=== PATIENT | female | born 1945 | race Caucasian/White ===

== ENCOUNTER → 2016-05-17 | Outpatient (CLI) | payer BC ==
[~2016-05-17] MED LIST: ASPI81TA28 PO; CHLOTAB PO; ERGO1CAP35 PO; EZET10TA63 PO; MONT1TAB3 PO; OXYB10TA13 PO; PRLSR20 PO; SIMV20TA2 PO
[2016-05-17 09:58] LABS: ESTIMATED AVERAGE GLUCOSE 128 mg/dl; HA1C FLAG Normal (Normal)
[2016-05-17 10:22] LABS: ALT/SGPT 31 U/L (12-78); BLOOD UREA NITROGEN 15 mg/dl (7-18); CALCIUM 9.5 mg/dl (8.5-10.1); CARBON DIOXIDE 31 mmol/L (21-32); CHLORIDE 106 mmol/L (98-107); CHOLESTEROL 283 mg/dl (0-200); GLUCOSE 105 mg/dl (70-99); POTASSIUM 4.2 mmol/L (3.5-5.1); SODIUM 141 mmol/L (136-145)
[2016-05-17 10:26] LABS: ALB/GLOB RATIO 1.1 (0.9-2); ALKALINE PHOSPHATASE 94 U/L (45-117); AST/SGOT 16 U/L (15-37); CHOLESTEROL/HDL RATIO 5.5; HDL CHOLESTEROL 51 mg/dl; LDL CHOLESTEROL CALCULATED 190 mg/dl; TRIGLYCERIDES 212 mg/dl (0-150); VERY LOW DENSITY LIPOPROT CALC 42 mg/dl
--- NOTE | 2016-05-21 12:52 | CODING QUERY MEDICAL NECESSITY ---
CQSUPPORTING DIAGNOSIS NEEDED A supporting diagnosis is required for the test/procedure performed on this patient in order for us to be reimbursed by the patient's insurance. Please provide a supporting diagnosis for the following test/procedure listed below next to the test name along with your signature. *If there is no additional diagnosis for this patient that would support the following test/procedure please document that below next to the test/procedure. Test(s)/Procedure(s) that require a supporting diagnosis: DOS 05/17/16 GLYCATED HEMOGLOBIN TEST Provider Signature: Date: Thank you Debra Fournier Health Information Management Once completed, please kindly fax back to [phone] For questions please call [phone]
== END | disposition home or self-care (01) ==
LOC: C.LAB1850 08:21
PROVIDERS: ATTEND Family Medicine
DX: E78.00 Pure hypercholesterolemia, unspecified (principal); R73.03 Prediabetes; Z23 Encounter for immunization

== ENCOUNTER → 2016-06-09 | Outpatient (CLI) | payer BC ==
--- NOTE | 2016-06-09 15:49 | MAMMOGRAPHY REPORT ---
BILATERAL DIGITAL SCREENING MAMMOGRAM WITH CAD: 06/09/2016 CLINICAL HISTORY: Routine screening. TECHNIQUE: Current study was also evaluated with a Computer Aided Detection (CAD) system. Bilatera l CC and MLO views were obtained. COMPARISON: Comparison is made to exams dated: 06/06/2015 mammogram, 06/04/2014 mammogram, 12/20/2012 mammogram, 12/04/2012 mammogram - [facility], 10/26/2006, and 07/18/2002 mammogram - [facility]. BREAST COMPOSITION: The tissue of both breasts is heterogeneously dense, which may obscure small ma sses. FINDINGS: No suspicious masses, calcifications, or areas of architectural distortion are noted in e ither breast. There has been no significant interval change compared to prior exams. Scattered bila teral benign calcifications are not significantly changed. A mass with an associated biopsy marker clip in the left upper inner quadrant is stable. IMPRESSION: ACR BI-RADS CATEGORY 2: BENIGN There is no mammographic evidence of malignancy. A 1 year screening mammogram is recommended. The p atient will receive written notification of the results. Approximately 10% of breast cancers are not detected with mammography. A negative mammographic repor t should not delay biopsy if a clinically suggestive mass is present. Landy Garcia M.D. ah/:06/09/2016 15:17:21 Billet Inspector: Wili MARR(R)(M), [facility] letter sent: Normal 1/2 BI-RADS Code: ACR BI-RADS Category 2: Benign
== END | disposition home or self-care (01) ==
LOC: C.MAMM 09:53
PROVIDERS: ATTEND Family Medicine
DX: Z12.31 Encounter for screening mammogram for malignant neoplasm of breast (principal)

== ENCOUNTER → 2016-11-22 | Outpatient (CLI) | payer BC ==
[2016-11-22 13:12] LABS: BLOOD UREA NITROGEN 21 mg/dl (7-18); BUN/CREATININE RATIO 19.7 (10-20); CALCIUM 9.1 mg/dl (8.5-10.1); CARBON DIOXIDE 27 mmol/L (21-32); CHLORIDE 106 mmol/L (98-107); CREATININE 1.09 mg/dl (0.60-1.20); GLUCOSE 93 mg/dl (70-99); POTASSIUM 4.5 mmol/L (3.5-5.1); SODIUM 140 mmol/L (136-145); TRIGLYCERIDES 271 mg/dl (0-150); VERY LOW DENSITY LIPOPROT CALC 54 mg/dl
[2016-11-22 13:15] LABS: CHOLESTEROL 278 mg/dl (0-200); CHOLESTEROL/HDL RATIO 5.8; HDL CHOLESTEROL 48 mg/dl; LDL CHOLESTEROL CALCULATED 176 mg/dl
[2016-11-22 13:34] LABS: ESTIMATED AVERAGE GLUCOSE 123 mg/dl; HA1C FLAG Normal (Normal)
== END | disposition home or self-care (01) ==
LOC: C.LAB1850 11:40
PROVIDERS: ATTEND Family Medicine
DX: E78.00 Pure hypercholesterolemia, unspecified (principal); R73.03 Prediabetes

== ENCOUNTER → 2016-12-31 | Outpatient (CLI) | payer BC | END | disposition home or self-care (01) | LOC: C.MAMM 08:58 | PROVIDERS: ATTEND Family Medicine | DX: M81.0 Age-related osteoporosis without current pathological fracture (principal); M85.851 Other specified disorders of bone density and structure, right thigh; M85.852 Other specified disorders of bone density and structure, left thigh ==

== ENCOUNTER → 2017-02-17 | Outpatient (CLI) | payer BC ==
[2017-02-17 17:30] LABS: CALCIUM 9.1 mg/dl (8.5-10.1)
== END | disposition home or self-care (01) ==
LOC: C.LABBC 13:43
PROVIDERS: ATTEND Internal Medicine Rheumatology
DX: K21.9 Gastro-esophageal reflux disease without esophagitis (principal); M25.562 Pain in left knee

== ENCOUNTER → 2017-06-10 | Outpatient (CLI) | payer BC ==
--- NOTE | 2017-06-13 14:33 | MAMMOGRAPHY REPORT ---
BILATERAL DIGITAL SCREENING MAMMOGRAM TOMOSYNTHESIS WITH CAD: 06/10/2017 CLINICAL HISTORY: Routine screening. Patient has no complaints. TECHNIQUE: Breast tomosynthesis in addition to standard 2D mammography was performed. Current study was also evaluated with a Computer Aided Detection (CAD) system. COMPARISON: Comparison is made to exams dated: 06/09/2016 mammogram, 06/06/2015 mammogram, 06/04/2014 ma mmogram, 12/20/2012 mammogram, 12/04/2012 mammogram - [facility], and 10/26/2006. BREAST COMPOSITION: The tissue of both breasts is heterogeneously dense, which may obscure small mas ses. FINDINGS: No suspicious masses, calcifications, or areas of architectural distortion are noted in ei ther breast. There has been no significant interval change compared to prior exams. Scattered bilate ral benign appearing calcifications are not significantly changed. A mass with an associated biopsy marker clip in the left upper inner quadrant is stable. IMPRESSION: ACR BI-RADS CATEGORY 2: BENIGN There is no mammographic evidence of malignancy. A 1 year screening mammogram is recommended. The pa tient will receive written notification of the results. Approximately 10% of breast cancers are not detected with mammography. A negative mammographic report should not delay biopsy if a clinically suggestive mass is present. Landy Garcia M.D. ah/:06/10/2017 15:00:59 Manager Rental: Rosalee MARR(R)(M)(BD), [facility] letter sent: Normal 1/2 BI-RADS Code: ACR BI-RADS Category 2: Benign
== END | disposition home or self-care (01) ==
LOC: C.MAMM 09:43
PROVIDERS: ATTEND Family Medicine
DX: Z12.31 Encounter for screening mammogram for malignant neoplasm of breast (principal)

== ENCOUNTER 2017-06-26 08:55 | Observation (INO) | payer BC ==
[~2017-06-26] VITALS: Ht 162.6 cm; Wt 67.0 kg
[2017-06-26] MEDS: SODIUM CHLORIDE 0.9% 1000ML 1,000 ML IV ONE ×2 (09:10→10:23)
[2017-06-26] MEDS ORDERED: SODIUM CHLORIDE 0.9% 1000ML 1,000 ML IV STA (09:10)
[2017-06-26 09:28] LABS: BASO % 0.1 %; BASO ABS # 0.01 K/uL (0-0.2); HEMATOCRIT 38.3 % (37-47); HEMOGLOBIN 13.3 g/dL (12.0-16.0); IG# 0.02 K/uL (0.00-0.02); LYMPH % 6.1 %; LYMPH ABS # 0.62 K/uL (1.2-3.4); MEAN CELL VOLUME 86.3 fL (80-100); MEAN CORPUSCULAR HGB CONC 34.7 g/dl (32-36); MEAN PLATELET VOLUME 8.4 fL (7.4-10.4); MONO % 6.5 %; MONO ABS # 0.66 K/uL (0.11-0.59); NEUT % 87.1 %; NEUT ABS # 8.79 K/uL (1.4-6.5); PLATELET COUNT 163 K/uL (130-400); RED CELL DISTRIBUTION WIDTH CV 12.4 % (11.5-14.5); RED CELL DISTRIBUTION WIDTH SD 39.4 fL (36.4-46.3)
--- NOTE | 2017-06-26 09:32 | EMERGENCY ROOM VISIT NOTE ---
History Report prepared by Clive: Brent Gan Under the Supervision of: Dr. Rashawn Oropeza M.D. First contact with patient: 09:02 Chief Complaint: RECTAL BLEEDING Stated Complaint: BLOOD IN FECES History of Present Illness The patient is a 71 year old female who presents to the Emergency Room with complaints of intermittent rectal bleeding that began yesterday after eating dinner. Patient is present with family. Patient states that after she finished eating dinner she had diarrhea and vomiting. Patient adds that she was constipated prior to the diarrhea. Patient states that the diarrhea had blood in it. Patient adds that she had discomfort in her abdomen and lower back last night when she was sleeping. Patient states that she got up from sleep 6 hours ago and went to the bathroom and had blood with no stools. She states that she had multiple similar occurrences throughout the rest of the night. She states that typically a "teaspoon to a table spoon" of blood comes out. Patient denies taking any blood thinners. Patient states that she gets a colonoscopy every 5 years. Patient states that she has a family history of colon cancer. Patient denies fevers, lightheadedness, dizziness, nausea, shortness of breath, chest pain, leg pain, or leg swelling. Patient denies a history of abdominal surgeries. Patient denies any other major medical problems. Patient denies any recent travel. Patient states that she sees Dr. Cooper at [facility]. Source of History: patient, family Onset: Yesterday Position: other (Rectal) Timing: intermittent Modifying Factors (Relieving): other (None) Associated Symptoms: + abdominal pain (Discomfort), + back pain (Lower back discomfort), + hematochezia, + diarrhea, No fevers, No chest pain, No SOB, No nausea Note: Patient denies lightheadedness, dizziness, leg pain, and leg swelling. Review of Systems See HPI for pertinent positives & negatives. A total of 10 systems reviewed and were otherwise negative. Past Medical & Surgical Medical Problems: (1) Hematochezia Surgical Problems: (1) H/O colonoscopy Old medical records were reviewed. Nurse's notes were reviewed and I agree with. No surgical history. No history of GI bleed. No anticoagulation use Family History FHx: colon cancer Social History Smoking Status: Never Smoker Drug Use: none Occupation Status: retired Current/Historical Medications Scheduled Bupropion (Wellbutrin-Xl), 300 MG PO DAILY Ergocalciferol (Vitamin D 25646 Unit), 50,000 UNIT PO WK Magnesium Oxide (Mag-Ox), 400 MG PO DAILY Mirabegron (Myrbetriq Er), 50 MG PO DAILY Misc Natural Products (Turmeric Curcumin), 1 TAB PO DAILY Multivitamin (Multivitamin), 1 TAB PO DAILY Omeprazole (Prilosec), 20 MG PO DAILY Venlafaxine Hcl (Effexor), 37.5 MG PO DAILY Allergies Coded Allergies: Bacitracin (Verified Allergy, Unknown, SKIN IRRITATION WITH A RASH, ) Polymyxin B (Verified Allergy, Unknown, SKIN IRRITATION WITH A RASH, ) Physical Exam Vital Signs Date Time Temp Pulse Resp B/P (MAP) Pulse Ox O2 Delivery O2 Flow Rate FiO2 06/26/17 11:29 79 20 174/87 99 Room Air 06/26/17 10:22 81 20 146/75 96 Room Air 06/26/17 09:38 99 Room Air 06/26/17 09:28 79 06/26/17 08:59 36.6 116 16 151/83 95 Room Air Physical Exam General: Non-ill appearing older female in no acute distress. HEENT: Normal cephalic atraumatic. Pupils are equal round and reactive to light. Extraocular movements are intact. Oropharynx is pink with moist mucous membranes. No swelling of the mouth lips or tongue. Neck: Supple with a midline trachea. No meningeal signs or stiffness, no JVD or bruits. No Stridor. Chest: Clear to auscultation bilaterally. No wheezes or rhonchi. No increased work of breathing. Heart: regular rate and rhythm. Abdomen: Soft nontender, nondistended without rebound guarding or rigidity. Rectal (performed in the presence of a female nurse director data processing, 1st exam): dark stool, guaiac negative, normal rectal tone, and normal perianal sensation. Rectal (performed in the presence of a female nurse director data processing, 2nd exam): no external hemorrhoids, questionable internal hemorrhoids, trace stool which was reddish and guaiac positive. Extremities: No cyanosis clubbing or edema. No calf tenderness or assymetry Spine/Back. Non tender to palpation. No CVA tenderness Skin: Good turgor without rashes. Neurologic exam: Cranial nerves two through 12 are intact. Motor and sensation are intact and symmetrical throughout. Medical Decision & Procedures ER Provider Diagnostic Interpretation: Radiology results as stated below per my review and radiologist interpretation: CT ABD/PELVIS IV CONTRAST ONLY CLINICAL HISTORY: Lower abdominal pain and rectal bleeding COMPARISON STUDY: None. TECHNIQUE: Following the IV administration of 119 mL of Optiray-320, CT scan of the abdomen and pelvis was performed from the lung bases to the proximal femurs. Images are reviewed in the axial, sagittal, and coronal planes. IV contrast was administered without complication. A dose lowering technique was utilized adhering to the principles of ALARA. CT DOSE: 297.75 mGy.cm FINDINGS: Lower chest: There are dependent atelectatic changes. There is a 5 mm solid left lower lobe pulmonary nodule. There is a second 5 mm pleural-based left lower lobe pulmonary nodule. A third 3 mm subpleural left lower lobe pulmonary nodule as visualized. There is a 4 mm perifissural right middle lobe pulmonary nodule. In a low risk patient, no further follow-up is deemed clinically necessary. Liver: The contrast-enhanced liver is normal in size, contour, and attenuation. There is no intrahepatic biliary ductal dilatation. The hepatic veins and portal veins are patent. Gallbladder: Unremarkable. Spleen: Normal in size and attenuation. Pancreas: Unremarkable. Adrenal glands: Unremarkable. Kidneys: There are bilateral parapelvic cysts. No solid cortical masses are visualized. An equivocal enhancing nodular focus within the left renal pelvis likely represents an adjacent vessel. Bowel: There are no transition zones indicate bowel obstruction. There is colonic diverticulosis. There is left colonic wall thickening with mild infiltration the pericolonic fat. The findings are consistent with a colitis. Peritoneum: There is no intraperitoneal free air or abdominal ascites. Vasculature: The abdominal aorta is normal in course and caliber. Adenopathy: None. Pelvic viscera: The bladder, and pelvic viscera are unremarkable. Skeletal structures: No destructive osseous lesions are seen. IMPRESSION: 1. No evidence of bowel obstruction. No evidence of free air 2. Left colonic wall thickening consistent with a nonspecific colitis Electronically signed by: Derian Hernandez M.D. 06/26/2017 11:15 AM Laboratory Results 06/26/17 09:16 Red Blood Count 4.44, Mean Corpuscular Volume 86.3, Mean Corpuscular Hemoglobin 30.0, Mean Corpuscular Hemoglobin Concent 34.7, Mean Platelet Volume 8.4, Neutrophils (%) (Auto) 87.1, Lymphocytes (%) (Auto) 6.1, Monocytes (%) (Auto) 6.5, Eosinophils (%) (Auto) 0.0, Basophils (%) (Auto) 0.1, Neutrophils # (Auto) 8.79, Lymphocytes # (Auto) 0.62, Monocytes # (Auto) 0.66, Eosinophils # (Auto) 0.00, Basophils # (Auto) 0.01 06/26/17 09:16 Test 06/26/17 09:16 White Blood Count 10.10 K/uL (4.8-10.8) Red Blood Count 4.44 M/uL (4.2-5.4) Hemoglobin 13.3 g/dL (12.0-16.0) Hematocrit 38.3 % (37-47) Mean Corpuscular Volume 86.3 fL (80-100) Mean Corpuscular Hemoglobin 30.0 pg (25-34) Mean Corpuscular Hemoglobin Concent 34.7 g/dl (32-36) Platelet Count 163 K/uL (130-400) Mean Platelet Volume 8.4 fL (7.4-10.4) Neutrophils (%) (Auto) 87.1 % Lymphocytes (%) (Auto) 6.1 % Monocytes (%) (Auto) 6.5 % Eosinophils (%) (Auto) 0.0 % Basophils (%) (Auto) 0.1 % Neutrophils # (Auto) 8.79 K/uL (1.4-6.5) Lymphocytes # (Auto) 0.62 K/uL (1.2-3.4) Monocytes # (Auto) 0.66 K/uL (0.11-0.59) Eosinophils # (Auto) 0.00 K/uL (0-0.5) Basophils # (Auto) 0.01 K/uL (0-0.2) RDW Standard Deviation 39.4 fL (36.4-46.3) RDW Coefficient of Variation 12.4 % (11.5-14.5) Immature Granulocyte % (Auto) 0.2 % Immature Granulocyte # (Auto) 0.02 K/uL (0.00-0.02) Anion Gap 8.0 mmol/L (3-11) Est Creatinine Clear Calc Drug Dose 48.1 ml/min Estimated GFR () 63.5 Estimated GFR (Non- 54.8 BUN/Creatinine Ratio 22.2 (10-20) Calcium Level 9.1 mg/dl (8.5-10.1) Total Bilirubin 0.5 mg/dl (0.2-1) Direct Bilirubin < 0.1 mg/dl (0-0.2) Aspartate Amino Transf (AST/SGOT) 18 U/L (15-37) Alanine Aminotransferase (ALT/SGPT) 31 U/L (12-78) Alkaline Phosphatase 89 U/L (45-117) Total Protein 7.2 gm/dl (6.4-8.2) Albumin 3.8 gm/dl (3.4-5.0) Lipase 150 U/L (73-393) Laboratory studies as stated above per my review. Medications Administered Medications (Trade) Dose Ordered Sig/Romain Route Start Time Stop Time Status Last Admin Dose Admin Sodium Chloride 1,000 ml @ 999 mls/hr Q1H1M STAT IV 06/26/17 09:10 06/26/17 10:10 DC 06/26/17 09:23 999 MLS/HR Sodium Chloride 1,000 ml @ 150 mls/hr Q6H40M ONCE IV 06/26/17 09:10 06/26/17 13:58 DC 06/26/17 10:23 150 MLS/HR ED Course 0903: Past medical records reviewed. The patient was evaluated in room B5, and a complete history and physical examination were performed. 0910: Sodium Chloride 1000 ml @ 150 mls/hr IV and Sodium Chloride 1000 ml @ 999 mls/hr IV 1045: Ioversol 100ml IV 1204: Patient is resting comfortably. She is agreeable to receiving inpatient treatment. 1215: Upon reevaluation, the patient will be further evaluated. I discussed the results and treatment plan with the patient. She verbalized agreement of the treatment plan. The patient will be evaluated for further management. Medical Decision Differentials include, but are not limited to; GI bleed, rectal bleed, anemia, trauma, and electrolyte or metabolic abnormality. This patient comes in after having bright red rectal bleeding. She was placed in room B5. this started last evening. No history of similar. She does have frequent colonoscopies for family history of colon cancer. He is asymptomatic upon arrival. She was seen at [facility] and sent over here. IV access established and blood work was obtained including type and screen. She was reassessed frequently. She has remained hemodynamically stable. On rectal exam , there is no external rectal lesions there is possibly an internal hemorrhoid felt. She does have a small amount of blood on the glove and is guaiac positive. Hemoglobin is stable. she has no white count or fever. She has no acute electrolyte or metabolic abnormalities. CAT scan was obtained and shows a possible colitis on the left. I do think she needs to be observed for further treatment and evaluation of her GI bleed/colitis. I have consulted the [facility] hospitalist. Medication Reconcilliation Current Medication List: was personally reviewed by me Blood Pressure Screening Patient's blood pressure: Normal blood pressure Blood pressure disposition: Did not require urgent referral Consults Time Called: 1210 Consulting Physician: Dr. Griselda RIBEIRO Returned Call: 1213 Discussed the patient's case. The patient will be evaluated for further management. Impression Primary Impression: GI bleed Additional Impression: Colitis Scribe Attestation The scribe's documentation has been prepared under my direction and personally reviewed by me in its entirety. I confirm that the note above accurately reflects all work, treatment, procedures, and medical decision making performed by me. Departure Information Dispostion Being Evaluated By Hospitalist Referrals Yen Cooper MD (PCP) Forms HOME CARE DOCUMENTATION FORM, IMPORTANT VISIT INFORMATION, WORK / SCHOOL INSTRUCTIONS Patient Instructions My [facility] Health Problem Qualifiers
[2017-06-26] MEDS ORDERED: MIRA1TAB3 PO (09:34)
[2017-06-26] MEDS ORDERED: MULT-506 PO (09:34)
[2017-06-26] MEDS ORDERED: EFF/375 PO (09:34)
[2017-06-26] MEDS ORDERED: BUPRTAB51 PO (09:34)
[2017-06-26] MEDS ORDERED: ERGO500037 PO (09:34)
[2017-06-26] MEDS ORDERED: MISCCAP52 PO (09:34)
[2017-06-26] MEDS ORDERED: MAGN400T6 PO (09:34)
[2017-06-26 09:47] LABS: ALBUMIN 3.8 gm/dl (3.4-5.0); ALKALINE PHOSPHATASE 89 U/L (45-117); ALT/SGPT 31 U/L (12-78); AST/SGOT 18 U/L (15-37); BLOOD UREA NITROGEN 23 mg/dl (7-18); CALCIUM 9.1 mg/dl (8.5-10.1); CARBON DIOXIDE 27 mmol/L (21-32); CREATININE 1.04 mg/dl (0.60-1.20); GLUCOSE 121 mg/dl (70-99); LIPASE 150 U/L (73-393); POTASSIUM 3.9 mmol/L (3.5-5.1); SODIUM 139 mmol/L (136-145); TOTAL PROTEIN 7.2 gm/dl (6.4-8.2)
[2017-06-26] MEDS ORDERED: OPTIRAY 320 IV PRN (10:45)
--- NOTE | 2017-06-26 11:16 | DIAGNOSTIC IMAGING REPORT ---
CT ABD/PELVIS IV CONTRAST ONLY CLINICAL HISTORY: Lower abdominal pain and rectal bleeding COMPARISON STUDY: None. TECHNIQUE: Following the IV administration of 119 mL of Optiray-320, CT scan of the abdomen and pelvis was performed from the lung bases to the proximal femurs. Images are reviewed in the axial, sagittal, and coronal planes. IV contrast was administered without complication. A dose lowering technique was utilized adhering to the principles of ALARA. CT DOSE: 297.75 mGy.cm FINDINGS: Lower chest: There are dependent atelectatic changes. There is a 5 mm solid left lower lobe pulmonary nodule. There is a second 5 mm pleural-based left lower lobe pulmonary nodule. A third 3 mm subpleural left lower lobe pulmonary nodule as visualized. There is a 4 mm perifissural right middle lobe pulmonary nodule. In a low risk patient, no further follow-up is deemed clinically necessary. Liver: The contrast-enhanced liver is normal in size, contour, and attenuation. There is no intrahepatic biliary ductal dilatation. The hepatic veins and portal veins are patent. Gallbladder: Unremarkable. Spleen: Normal in size and attenuation. Pancreas: Unremarkable. Adrenal glands: Unremarkable. Kidneys: There are bilateral parapelvic cysts. No solid cortical masses are visualized. An equivocal enhancing nodular focus within the left renal pelvis likely represents an adjacent vessel. Bowel: There are no transition zones indicate bowel obstruction. There is colonic diverticulosis. There is left colonic wall thickening with mild infiltration the pericolonic fat. The findings are consistent with a colitis. Peritoneum: There is no intraperitoneal free air or abdominal ascites. Vasculature: The abdominal aorta is normal in course and caliber. Adenopathy: None. Pelvic viscera: The bladder, and pelvic viscera are unremarkable. Skeletal structures: No destructive osseous lesions are seen. IMPRESSION: 1. No evidence of bowel obstruction. No evidence of free air 2. Left colonic wall thickening consistent with a nonspecific colitis Electronically signed by: Derian Hernandez M.D. 06/26/2017 11:15 AM Dictated Date/Time: 06/26/2017 11:08 AM
[2017-06-26] MEDS ORDERED: ACETAMINOPHEN 325 MG TAB PO PRN (12:30)
[2017-06-26] MEDS ORDERED: ONDANSETRON INJ 2 MG/ML 2 ML VIAL IV PRN (12:30)
[2017-06-26] MEDS ORDERED: ALUMINUM/MAGNESIUM/SIMETH (MAALOX MAX) 30 ML UDC PO PRN (12:30)
[2017-06-26 12:46] VITALS: Ht 162.6 cm; Wt 67.0 kg
[2017-06-26] MEDS ORDERED: IV FLUIDS COMPLETED PRN (13:00)
[2017-06-26 13:46] VITALS: BP 184/120; PULSE 100; TEMP 37; O2SAT 100
[2017-06-26 13:49] VITALS: BP 158/77; PULSE 79
--- NOTE | 2017-06-26 13:51 | HISTORY & PHYSICAL EXAMINATION ---
DATE OF ADMISSION: 06/26/2017 HISTORY OF PRESENT ILLNESS: Ms. Prakash is a very pleasant 71-year-old white female with a history of Prediabetes, Hypercholesterolemia, GERD, Depression, Obstructive Sleep Apnea, Osteoporosis, and a family history of colon cancer-- who was in her usual state of health last evening, and ate her usual dinner. Shortly thereafter, she began to develop some nausea, vomited once or twice, followed by development of diarrhea. The patient had a vague discomfort in her mid to lower abdomen almost all night long, and it radiated to her back. She awakened several times last night / this morning with the urge to defecate , but passed only blood. Because of this, she sought treatment at [facility] who subsequently referred her to [facility] Emergency Room for further evaluation and treatment. Please note that the patient has colonoscopies every 5 years due to a family history of colon cancer. Her last colonoscopy was done in 2012, and that showed diverticulosis coli and internal hemorrhoids. The patient offers no complaints at the present time. Still has a vague discomfort in her lower abdomen, and she has heme-positive stools in the ER. She has never experienced GI bleeding in the past. The patient denies any recent changes in her diet, appetite, or body weight. She does have occasional constipation. She denies any change in the caliber of stools leading up to this bleeding. She does not take any blood thinning medications, and considers herself generally very healthy. MEDICATIONS: 1. Wellbutrin-XL 300 mg daily. 2. Vitamin D 50,000 units p.o. q. week. 3. Mag-Ox 400 mg daily. 4. Myrbetriq ER 50 mg daily. 5. Multivitamin daily. 6. Prilosec 20 mg daily. 7. Effexor XR 37.5 mg daily. ALLERGIES: 1. NEOSPORIN/TRIPLE ANTIBIOTIC OINTMENT, CAUSES A RASH. 2. POLYMYXIN B, CAUSES A RASH. 3. INTOLERANT OF NYQUIL AND CLARITIN-D WHICH MAKE HER "SHAKY." PAST MEDICAL HISTORY: 1. Prediabetes. 2. GERD. 3. Hypercholesterolemia. 4. Obstructive sleep apnea. 5. Osteoporosis. 6. Depression. 7. History of dental surgery. 8. Pilonidal cyst resection. 9. Status post tonsillectomy remotely. 10. Colonoscopies every 5 years for a family history of tubular adenomas and colon cancer. Last colonoscopy 2012. 11. History of EGD, 2013, unremarkable. SOCIAL HISTORY: The patient is and lives with her life partner in [place], [place]. She is retired from [employer]. Does not use tobacco or tobacco products. No significant alcohol use. FAMILY HISTORY: Significant for tubular adenoma and breast cancer in her mother. Father had peripheral arterial disease, nephrolithiasis. Maternal grandmother with colon cancer. PHYSICAL EXAMINATION: VITAL SIGNS: Temperature is 36.6 degrees Celsius, pulse is 78 and regular, respiratory rate 15 and unlabored, blood pressure 174/87, SpO2 is 99% on room air. GENERAL: The patient is in no acute distress. HEENT: Head is atraumatic, normocephalic. EOMs intact. Sclerae anicteric. Face is symmetric. No perioral cyanosis. Mucous membranes moist. NECK: Without JVD. Carotid upstrokes +2 bilaterally without bruits. CHEST AND LUNGS: Clear to auscultation throughout all lung ware. No wheezes, rales or rhonchi. CARDIOVASCULAR: S1 and S2 are regular without obvious murmur, gallop or rub. PMI is nonpalpable. No lifts, heaves, or thrills. ABDOMINAL EXAM: Bowel sounds are present. No masses or organomegaly. Mildly tender to palpation in the left lower abdomen. No guarding, rigidity or rebound tenderness. Stool is guaiac positive (Dr. Oropeza performed this examination in the ER, I did not). EXTREMITIES: No clubbing, cyanosis or edema. Intact radial and posterior tibial pulses bilaterally. NEUROLOGIC: The patient is awake, alert and oriented. Pleasant and cooperative. Answers questions appropriately. Speech is clear. Normal movement in all 4 extremities. Gait pattern not assessed. Telemetry monitoring reveals normal sinus rhythm. IMAGING DATA: CT scan of the abdomen and pelvis with IV contrast shows colonic diverticulosis with a left colonic wall thickening and mild infiltration of the pericolonic fat, consistent with possible colitis, question diverticulitis. Abdominal aorta is normal in course and caliber. ASSESSMENT: 1. Hematochezia, acute lower gastrointestinal bleed. 2. Prediabetes. 3. GERD. 4. Hypercholesterolemia. 5. Depression. 6. Obstructive sleep apnea. 7. Osteoporosis. 8. Depression. 9. History of colonic diverticulosis. 10. History of internal hemorrhoids. PLAN: 1. Admit to medical floor for IV fluids and close monitoring of H and H. 2. The patient will be placed on a clear-liquid diet. Check stool for enteric pathogens, C. Diff toxin assay, consider colonoscopy. 3. Repeat H and H at 1700. Her hemoglobin on admission is normal at 13.3 g/dL and hematocrit of 38.3%. 4. Continue proton pump inhibitor. 5. Continue Wellbutrin-XL 300 mg daily, Effexor XR 37.5 mg daily. 6. Continue Myrbetriq 50 mg daily. 7. Continue IV normal saline solution at 100 mL per hour. 8. Begin IV Cipro 200 mg q. 12 hours and IV metronidazole 500 mg IV q. 8 hours. 9. Consider GI consultation due to this patient's lower GI bleeding, and she is due for a colonoscopy. 10. If hemoglobin drops, type and crossmatch 2 units of packed red blood cells, will transfuse if clinically indicated. 11. The patient is being admitted to Dr. Villalobos service. I discussed this patient with him. ROMAIN
[2017-06-26] MEDS: SODIUM CHLORIDE 0.9% 1000ML 1,000 ML IV SCH ×2 (13:58→23:13)
[2017-06-26] MEDS ORDERED: CIPROFLOXACIN / D5W 400 MG in PREMIXED IN D5W 200 ML IV SCH (14:00)
[2017-06-26] MEDS ORDERED: METRONIDAZOLE / NSS 500 MG in PREMIXED NSS 100 ML IV SCH (14:00)
--- NOTE | 2017-06-26 15:01 | Progress Note ---
Progress Note Date of Service June 26, 2017. Progress Note [place] Physician Supervision Note: I interviewed and examined the patient. Discussed with Herson Rutledge PAC and agree with findings and plan as documented in the note. Any exceptions or clarifications are listed here: None this pt presented with Hematochezia, CT of abdomen and pelvis shows colitis, found to have C Diff will be placed on oral vancomycin abdomen exam is benign vitals are stable Documented By: Brent Villalobos
[2017-06-26] MEDS: VANCOMYCIN HCL 125 MG/2.5ML SOLN PO SCH ×2 (15:59→21:58)
[2017-06-26] MEDS: RASPBERRY SYRUP 5 ML UDP PO SCH ×2 (16:00→21:57)
[2017-06-26 17:07] LABS: HEMATOCRIT 37.1 % (37-47); HEMOGLOBIN 12.7 g/dL (12.0-16.0)
[2017-06-26 23:07] VITALS: BP 162/74; PULSE 89; TEMP 37.5; O2SAT 99
[2017-06-27] MEDS: VANCOMYCIN HCL 125 MG/2.5ML SOLN PO SCH ×4 (05:02→21:53)
[2017-06-27] MEDS: RASPBERRY SYRUP 5 ML UDP PO SCH ×4 (05:03→21:53)
[2017-06-27 05:28] LABS: HEMATOCRIT 34.9 % (37-47); HEMOGLOBIN 12.3 g/dL (12.0-16.0); MEAN CORPUSCULAR HEMOGLOBIN 30.7 pg (25-34); MEAN CORPUSCULAR HGB CONC 35.2 g/dl (32-36); MEAN PLATELET VOLUME 8.6 fL (7.4-10.4); PLATELET COUNT 146 K/uL (130-400); RED CELL DISTRIBUTION WIDTH CV 12.6 % (11.5-14.5); RED CELL DISTRIBUTION WIDTH SD 40.4 fL (36.4-46.3); WHITE BLOOD COUNT 8.91 K/uL (4.8-10.8)
[2017-06-27 05:57] LABS: CREATININE 0.94 mg/dl (0.60-1.20); POTASSIUM 3.7 mmol/L (3.5-5.1)
[2017-06-27 07:13] VITALS: BP 129/78; PULSE 89; TEMP 36.6; O2SAT 93
[2017-06-27] MEDS: MULTIVITAMIN TAB PO SCH (07:24)
[2017-06-27] MEDS: MAGNESIUM OXIDE 400 MG TAB PO SCH (07:24)
[2017-06-27] MEDS: VENLAFAXINE HCL XR 37.5 MG CAPXR PO SCH (07:24)
[2017-06-27] MEDS: MIRABEGRON ER 25 MG TAB PO SCH (07:25)
[2017-06-27] MEDS: PANTOprazole SOD 40 MG TAB PO SCH (07:25)
[2017-06-27] MEDS: BuPROPion XL 300 MG TABCR PO SCH (07:25)
[2017-06-27 08:01] VITALS: O2SAT 93
[2017-06-27] MEDS: SODIUM CHLORIDE 0.9% 1000ML 1,000 ML IV SCH (08:56)
[2017-06-27 13:21] LABS: CREATININE 0.98 mg/dl (0.60-1.20); POTASSIUM 3.5 mmol/L (3.5-5.1)
[2017-06-27 14:09] LABS: HEMATOCRIT 35.1 % (37-47); MEAN CELL VOLUME 87.5 fL (80-100); MEAN CORPUSCULAR HEMOGLOBIN 29.9 pg (25-34); MEAN CORPUSCULAR HGB CONC 34.2 g/dl (32-36); MEAN PLATELET VOLUME 8.5 fL (7.4-10.4); PLATELET COUNT 163 K/uL (130-400); RED CELL DISTRIBUTION WIDTH CV 12.8 % (11.5-14.5); RED CELL DISTRIBUTION WIDTH SD 41.5 fL (36.4-46.3); WHITE BLOOD COUNT 10.11 K/uL (4.8-10.8)
--- NOTE | 2017-06-27 14:51 | Hospitalist Progress Note ---
Hospitalist Progress Note Date of Service June 27, 2017. (Jenae Swenson ., MARLEE) Subjective Pt evaluation today including: conversation w/ patient, physical exam, chart review, lab review, review of inpatient medication list Voiding: no voiding problems Ms. Prakash is having some crampy abdominal pain, but otherwise is feeling well. She has had blood when she urinates but no bowel movements since last night. ROS Constitutional: no chills, aches, sweats or fever Respiratory: no sob,cough, sputum, or wheezing Cardiac: no chest pain, palpitations, edema, orthopnea or lightheadedness GI: no abdominal pain, nausea, vomiting, diarrhea or constipation : no dysuria or hesitancy Extremities: no joint pain or weakness Skin: no rash All other systems reviewed and negative (Jenae Swenson CRNP) Medications Medications Administered Medications (Trade) Dose Ordered Sig/Romain Route Start Time Stop Time Status Last Admin Dose Admin Sodium Chloride 1,000 ml @ 999 mls/hr Q1H1M STAT IV 06/26/17 09:10 06/26/17 10:10 DC 06/26/17 09:23 999 MLS/HR Sodium Chloride 1,000 ml @ 150 mls/hr Q6H40M ONCE IV 06/26/17 09:10 06/26/17 13:58 DC 06/26/17 10:23 150 MLS/HR Bupropion HCl (Wellbutrin-Xl Tab) 300 mg DAILY PO 06/27/17 08:00 07/27/17 08:59 06/27/17 07:25 300 MG Magnesium Oxide (Mag-Ox Tab) 400 mg DAILY PO 06/27/17 08:00 07/27/17 08:59 06/27/17 07:24 400 MG Mirabegron (Myrbetriq Er) 50 mg DAILY PO 06/27/17 08:00 07/27/17 08:59 06/27/17 07:25 50 MG Multivitamins (Multivitamin Tab) 1 tab DAILY PO 06/27/17 08:00 07/27/17 08:59 06/27/17 07:24 1 TAB Venlafaxine HCl (effeXOR EXTENDED REL CAP) 37.5 mg DAILY PO 06/27/17 08:00 07/27/17 08:59 5/21/18 07:24 37.5 MG Pantoprazole Sodium (Protonix Tab) 40 mg DAILY PO 06/27/17 08:00 07/27/17 08:59 06/27/17 07:25 40 MG Sodium Chloride 1,000 ml @ 100 mls/hr Q10H IV 06/26/17 14:00 07/26/17 13:59 06/27/17 08:56 100 MLS/HR Vancomycin HCl (Vancomycin Oral Soln) 125 mg Q6H PO 06/26/17 16:00 07/10/17 14:59 06/27/17 08:56 125 MG Raspberry (Raspberry Syrup 5ml Cup) 5 ml Q6H PO 06/26/17 16:00 07/10/17 15:59 06/27/17 08:56 5 ML (Jenae Swenson CRNP) Objective Vital Signs Date Time Temp Pulse Resp B/P (MAP) Pulse Ox O2 Delivery O2 Flow Rate FiO2 06/27/17 08:01 93 Room Air 06/27/17 07:13 36.6 89 19 129/78 (95) 93 Room Air 06/27/17 00:00 Room Air 06/26/17 23:07 37.5 89 20 162/74 (103) 99 Room Air 06/26/17 20:00 Room Air 06/26/17 16:00 Room Air (Jenae Swenson CRNP) Physical Exam Notes: General: no distress Eyes: normal inspection, PERLL Respiratory: chest non tender, clear to auscultation, normal breath sounds, no respiratory distress, no accessory muscle use Cardiac: regular rate and rhythm, no rub or gallop, no murmur, no edema, no jvd GI/: active bowel sounds, no abd pain or tenderness, soft, non distended Extremities: normal range of motion, normal strength, non tender Neuro/Psych: alert and oriented x 3, normal mood and affect Skin: normal color, dry (Jenae Swenson CRNP) Laboratory Results Last 24 Hours Test 06/26/17 16:48 06/27/17 05:02 06/27/17 12:45 Hemoglobin 12.7 g/dL 12.3 g/dL 12.0 g/dL Hematocrit 37.1 % 34.9 % 35.1 % White Blood Count 8.91 K/uL 10.11 K/uL Red Blood Count 4.01 M/uL 4.01 M/uL Mean Corpuscular Volume 87.0 fL 87.5 fL Mean Corpuscular Hemoglobin 30.7 pg 29.9 pg Mean Corpuscular Hemoglobin Concent 35.2 g/dl 34.2 g/dl RDW Standard Deviation 40.4 fL 41.5 fL RDW Coefficient of Variation 12.6 % 12.8 % Platelet Count 146 K/uL 163 K/uL Mean Platelet Volume 8.6 fL 8.5 fL Sodium Level 141 mmol/L 141 mmol/L Potassium Level 3.7 mmol/L 3.5 mmol/L Chloride Level 109 mmol/L 109 mmol/L Carbon Dioxide Level 28 mmol/L 27 mmol/L Anion Gap 4.0 mmol/L 5.0 mmol/L Blood Urea Nitrogen 8 mg/dl 6 mg/dl Creatinine 0.94 mg/dl 0.98 mg/dl Est Creatinine Clear Calc Drug Dose 53.2 ml/min 51.0 ml/min Estimated GFR () 71.7 68.2 Estimated GFR (Non- 61.9 58.9 BUN/Creatinine Ratio 8.4 6.1 Random Glucose 123 mg/dl 154 mg/dl Calcium Level 8.0 mg/dl 8.0 mg/dl Magnesium Level 1.9 mg/dl (Jenae Swenson CRNP) Assessment and Plan Ms. Prakash is a 71 year old woman here for GI bleed GI bleed - H&H has gone from 13.3 to 12 since admission, repeat am - C. diff positive - continue po vancomycin - stool cultures negative - can consider colonoscopy outpatient when infection clears - bleeding sounds like rectal bleeding that is apparent during urination however may be hematuria - u/a cath and culture - Continue proton pump inhibitor. - Can dc fluids and increase diet Depression - Continue Wellbutrin-XL 300 mg daily, Effexor XR 37.5 mg daily. full code (Jenae Swenson CRNP) Supervising Note Dr. Veras I performed a history and physical examination on the patient. I reviewed above note and agree with it. I discussed plan with APC and patient. During my face to face encounter with the patient, I answered all of the patient's questions. Hemoglobin has gradually decreased. will recheck hemoglobin in AM. Clinically not showing significant signs of active bleeding. (Marlo Veras M.D.)
[2017-06-27 15:19] VITALS: BP 138/78; PULSE 77; TEMP 37.4; O2SAT 96
[2017-06-27 20:00] VITALS: BP 157/66; PULSE 74; TEMP 36.6; O2SAT 98
[2017-06-27 20:05] VITALS: O2SAT 93
[2017-06-28] VITALS: BP 129/75; PULSE 84; TEMP 37.1; O2SAT 94
[2017-06-28 00:05] VITALS: O2SAT 93
[2017-06-28] MEDS: RASPBERRY SYRUP 5 ML UDP PO SCH ×2 (04:20→09:07)
[2017-06-28] MEDS: VANCOMYCIN HCL 125 MG/2.5ML SOLN PO SCH ×2 (04:20→09:11)
[2017-06-28 07:32] VITALS: BP 123/73; PULSE 83; TEMP 37.1; O2SAT 92
[2017-06-28 08:57] LABS: HEMATOCRIT 34.6 % (37-47); HEMOGLOBIN 11.9 g/dL (12.0-16.0); MEAN CELL VOLUME 87.8 fL (80-100); MEAN CORPUSCULAR HEMOGLOBIN 30.2 pg (25-34); MEAN CORPUSCULAR HGB CONC 34.4 g/dl (32-36); MEAN PLATELET VOLUME 8.9 fL (7.4-10.4); PLATELET COUNT 164 K/uL (130-400); RED CELL DISTRIBUTION WIDTH CV 12.6 % (11.5-14.5); WHITE BLOOD COUNT 8.83 K/uL (4.8-10.8)
[2017-06-28] MEDS: MAGNESIUM OXIDE 400 MG TAB PO SCH (09:06)
[2017-06-28] MEDS: VENLAFAXINE HCL XR 37.5 MG CAPXR PO SCH (09:06)
[2017-06-28] MEDS: BuPROPion XL 300 MG TABCR PO SCH (09:06)
[2017-06-28] MEDS: MIRABEGRON ER 25 MG TAB PO SCH (09:06)
[2017-06-28] MEDS: MULTIVITAMIN TAB PO SCH (09:06)
[2017-06-28] MEDS: PANTOprazole SOD 40 MG TAB PO SCH (09:06)
[2017-06-28] MEDS ORDERED: VANC1SUS PO (11:25)
[2017-06-28] MEDS ORDERED: RSPS5 PO (11:25)
--- NOTE | 2017-06-28 11:28 | Discharge Instructions ---
Discharge Instructions Date of Service June 28, 2017. Admission Reason for Admission: Hematochezia Discharge Discharge Diagnosis / Problem: Clostridium difficile Discharge Goals Goal(s): Improve disease control Activity Recommendations Activity Limitations: resume your previous activity . Instructions / Follow-Up Instructions / Follow-Up Please follow up with your primary care provider within about a week. Please call your doctor if you have any further bleeding. You should hold your turmeric supplement until you are finished the C.diff treatment as curcumin in high doses ( ie in supplement rather than food form) can contribute to blood thinning. You should establish with a GI specialist to follow up in 1-2 weeks. Current Hospital Diet Patient's current hospital diet: Regular Diet Discharge Diet Recommended Diet: Regular Diet Procedures Procedures Performed: Abdomen/pelvis CT Pending Studies Studies pending at discharge: no Medical Emergencies . Who to Call and When: Medical Emergencies: If at any time you feel your situation is an emergency, please call 911 immediately. . Non-Emergent Contact Non-Emergency issues call your: Primary Care Provider Call Non-Emergent contact if: you have a fever, your pain is not controlled, your pain is worsening, you have any medication questions . . "Provider Documentation" section prepared by Jenae Swenson. .
--- NOTE | 2017-06-28 11:35 | Discharge Summary ---
Discharge Summary Date of Service June 28, 2017. Discharge Summary Admission Date: June 26, 2017 at 12:35 Discharge Date: June 28, 2017 Discharge Disposition: Home Principal Diagnosis: C. diff Problems/Secondary Diagnoses: GI bleed Procedures: [~ rep ct add3]] CT ABD/PELVIS IV CONTRAST ONLY CLINICAL HISTORY: Lower abdominal pain and rectal bleeding COMPARISON STUDY: None. TECHNIQUE: Following the IV administration of 119 mL of Optiray-320, CT scan of the abdomen and pelvis was performed from the lung bases to the proximal femurs. Images are reviewed in the axial, sagittal, and coronal planes. IV contrast was administered without complication. A dose lowering technique was utilized adhering to the principles of ALARA. CT DOSE: 297.75 mGy.cm FINDINGS: Lower chest: There are dependent atelectatic changes. There is a 5 mm solid left lower lobe pulmonary nodule. There is a second 5 mm pleural-based left lower lobe pulmonary nodule. A third 3 mm subpleural left lower lobe pulmonary nodule as visualized. There is a 4 mm perifissural right middle lobe pulmonary nodule. In a low risk patient, no further follow-up is deemed clinically necessary. Liver: The contrast-enhanced liver is normal in size, contour, and attenuation. There is no intrahepatic biliary ductal dilatation. The hepatic veins and portal veins are patent. Gallbladder: Unremarkable. Spleen: Normal in size and attenuation. Pancreas: Unremarkable. Adrenal glands: Unremarkable. Kidneys: There are bilateral parapelvic cysts. No solid cortical masses are visualized. An equivocal enhancing nodular focus within the left renal pelvis likely represents an adjacent vessel. Bowel: There are no transition zones indicate bowel obstruction. There is colonic diverticulosis. There is left colonic wall thickening with mild infiltration the pericolonic fat. The findings are consistent with a colitis. Peritoneum: There is no intraperitoneal free air or abdominal ascites. Vasculature: The abdominal aorta is normal in course and caliber. Adenopathy: None. Pelvic viscera: The bladder, and pelvic viscera are unremarkable. Skeletal structures: No destructive osseous lesions are seen. IMPRESSION: 1. No evidence of bowel obstruction. No evidence of free air 2. Left colonic wall thickening consistent with a nonspecific colitis Electronically signed by: Derian Hernandez M.D. 06/26/2017 11:15 AM Medication Reconciliation New Medications: Raspberry (Raspberry Syrup) 5 Ml/Cup Syrp 5 ML PO QID for 8 Days, #32 DOSE Vancomycin HCl (Vancomycin HCl + Syrspend) 50 Mg/Ml Erinn 125 MG PO QID for 8 Days, #32 DOSE Continued Medications: Bupropion (Wellbutrin-Xl) 300 Mg Tabcr 300 MG PO DAILY, TAB Ergocalciferol (Vitamin D 83735 Unit) 50,000 Unit Cap 99406 UNIT PO WK, CAP Magnesium Oxide (Mag-Ox) 400 Mg Tab 400 MG PO DAILY, TAB Mirabegron (Myrbetriq Er) 50 Mg Tab 50 MG PO DAILY, TAB Misc Natural Products (Turmeric Curcumin) 1 Cap Cap 1 TAB PO DAILY Multivitamin (Multivitamin) Tab 1 TAB PO DAILY, TAB Omeprazole (Prilosec) 20 Mg Capcr 20 MG PO DAILY, CAP Venlafaxine Hcl (Effexor) 37.5 Mg Tab 37.5 MG PO DAILY, TAB Discharge Exam ROS Constitutional: no chills, aches, sweats or fever Respiratory: no sob,cough, sputum, or wheezing Cardiac: no chest pain, palpitations, edema, orthopnea or lightheadedness GI: no abdominal pain, nausea, vomiting, diarrhea or constipation, no further bleeding since 2 pm yesterday : no dysuria or hesitancy Extremities: no joint pain or weakness Skin: no rash All other systems reviewed and negative PE General: no distress Eyes: normal inspection, PERLL Respiratory: chest non tender, clear to auscultation, normal breath sounds, no respiratory distress, no accessory muscle use Cardiac: regular rate and rhythm, no rub or gallop, no murmur, no edema, no jvd GI/: active bowel sounds, no abd pain or tenderness, soft, non distended Extremities: normal range of motion, normal strength, non tender Neuro/Psych: alert and oriented x 3, normal mood and affect Skin: normal color, dry Hospital Course Ms. Prakash is a 71 year old woman here for GI bleed GI bleed - H&H has gone from 13.3 to 12 since admission, no further bleeding since yesterday - C. diff positive - continue po vancomycin for 10 days total - stool cultures negative - can consider colonoscopy outpatient when infection clears - bleeding sounds like rectal bleeding that is apparent during urination however may be hematuria - u/a cath and culture negative - Continue proton pump inhibitor. - DC'd fluids, tolerating diet Depression - Continue Wellbutrin-XL 300 mg daily, Effexor XR 37.5 mg daily. full code Total Time Spent: Greater than 30 minutes This includes examination of the patient, discharge planning, medication reconciliation, and communication with other providers. Discharge Instructions Please refer to the electronic Patient Visit Report (Discharge Instructions) for additional information.
[2017-06-28] MEDS ORDERED: VANC5CAP PO (11:47)
[2017-06-28 12:08] VITALS: BP 123/73; PULSE 83; TEMP 37.1; O2SAT 92
== END 2017-06-28 14:50 | disposition home or self-care (01) ==
LOC: C.EDB 08:56 → UNDOADMOB 12:35 → C.4E 12:35 → ENRESERV 12:51
PROVIDERS: ADMIT Internal Medicine; ATTEND Internal Medicine Sports Medicine
DX: A04.72 Enterocolitis due to Clostridium difficile, not specified as recurrent (principal); K92.2 Gastrointestinal hemorrhage, unspecified; M81.0 Age-related osteoporosis without current pathological fracture; F32.9 Major depressive disorder, single episode, unspecified; R73.03 Prediabetes; Z88.1 Allergy status to other antibiotic agents; Z79.899 Other long term (current) drug therapy

== ENCOUNTER → 2017-09-21 | Day surgery (SDC) | payer BC ==
[2017-09-15 12:20] VITALS: BMI 25.0
[~2017-09-21] VITALS: Ht 162.6 cm; Wt 65.9 kg
[~2017-09-21] MED LIST changes: -ASPI81TA28 PO; +BUPRTAB51 PO; -CHLOTAB PO; -ERGO1CAP35 PO; +ERGO500037 PO; -EZET10TA63 PO; +LIDOCAINE HCL 2% 2 ML VIAL (20MG/ML) ONE; +MIDAZOLAM HCL 1 MG/ML 2ML VIAL ONE; +MIRA1TAB3 PO; -MONT1TAB3 PO; +MULT-506 PO; +ONDANSETRON INJ 2 MG/ML 2 ML VIAL ONE; -OXYB10TA13 PO; +PROPOFOL IV EMULSION 10 MG/ML 20 ML VIAL ONE; -SIMV20TA2 PO; +SODIUM CHLORIDE 0.9% 500ML 500 ML IV ONE; +TURM1CAP4 PO
[2017-09-21 08:27] VITALS: Ht 162.6 cm; Wt 65.9 kg
--- NOTE | 2017-09-21 08:50 | Endo History and Physical ---
History & Physical Date of Service: Sep 21, 2017. Chief Complaint: HX CDIFF, COLITIS, FAMILY HX COLON CANCER Referring Physician: DR CAMPBELL History of Present Illness 72 yo CF who presents for colonoscopy secondary to family history of colon cancer. Past Surgical History Hx Cardiac Surgery: No Hx Internal Defibrillator: No Hx Pacemaker: No Hx Abdominal Surgery: No Hx of Implantable Prosthesis: No Hx Post-Op Nausea and Vomiting: No Hx Cancer Surgery: No Hx Thoracic Surgery: No Hx Orthopedic: No Hx Urinary Tract Surgery: No Family History Colon CA Social History Smoking Status: Former Smoker Hx Substance Use: No Hx Alcohol Use: Yes (1 SHOT OF PUMA EVERY NIGHT) Allergies Coded Allergies: Bacitracin (Verified Allergy, Unknown, SKIN IRRITATION WITH A RASH, 09/15/17 ) Neomycin (Unverified Allergy, Unknown, RASH, 09/21/17) Polymyxin B (Verified Allergy, Unknown, SKIN IRRITATION WITH A RASH, ) Uncoded Allergies: CLARITIN D (Allergy, Unknown, HEART PALPITATION, 09/15/17) Current Medications Reported Home Medications Medications Dose Route/Sig Max Daily Dose Days Date Category Vitamin D 71311 Unit (Ergocalciferol) 50,000 Unit Cap 50,000 Unit PO WK 09/15/17 Reported Wellbutrin-Xl (Bupropion HCl) 300 Mg Tabcr 300 Mg PO QAM 09/15/17 Reported Myrbetriq Er (Mirabegron) 50 Mg Tab 50 Mg PO QAM 09/15/17 Reported Prilosec (Omeprazole) 20 Mg Capcr 20 Mg PO QAM 09/15/17 Reported Turmeric (Turmeric (Curcuma Longa)) 500 Mg Cap 1 Cap PO DAILY 09/15/17 Reported Multivitamin (Multivitamins) Tab 1 Tab PO DAILY 06/26/17 Reported Vital Signs Weight (Kilograms): 65.91 Height (Feet): 5 Height (Inches): 4 Date Time Temp Pulse Resp B/P (MAP) Pulse Ox O2 Delivery O2 Flow Rate FiO2 09/21/17 08:26 36.1 89 20 151/82 (105) 96 Room Air Physical Exam General Appearance: WD/WN, no apparent distress Respiratory/Chest: Auscultation: breath sounds normal Cardiovascular: Heart Auscultation: RRR Abdomen: Bowel Sounds: normal Inspection & Palpation: soft, non-distended, no tenderness, guarding & rebound Assessment and Plan Assessment: 72 yo CF who presents for colonoscopy secondary to family history of colon cancer. Plan: Proceed with colonoscopy.
--- NOTE | 2017-09-21 09:44 | Discharge Instructions ---
Endoscopy Patient Instructions Date / Procedure(s) Performed Sep 21, 2017. Colonoscopy Allergy Information Coded Allergies: Bacitracin (Verified Allergy, Unknown, SKIN IRRITATION WITH A RASH, 09/15/17 ) Neomycin (Unverified Allergy, Unknown, RASH, 09/21/17) Polymyxin B (Verified Allergy, Unknown, SKIN IRRITATION WITH A RASH, ) Uncoded Allergies: CLARITIN D (Allergy, Unknown, HEART PALPITATION, 09/15/17) Discharge Date / Findings Sep 21, 2017. Colon polyp Diverticulosis Internal hemorrhoids Medication Instructions OK to resume all medications today as prescribed Reported Home Medications Medications Dose Route/Sig Max Daily Dose Days Date Category Vitamin D 67342 Unit (Ergocalciferol) 50,000 Unit Cap 50,000 Unit PO WK 09/15/17 Reported Wellbutrin-Xl (Bupropion HCl) 300 Mg Tabcr 300 Mg PO QAM 09/15/17 Reported Myrbetriq Er (Mirabegron) 50 Mg Tab 50 Mg PO QAM 09/15/17 Reported Prilosec (Omeprazole) 20 Mg Capcr 20 Mg PO QAM 09/15/17 Reported Turmeric (Turmeric (Curcuma Longa)) 500 Mg Cap 1 Cap PO DAILY 09/15/17 Reported Multivitamin (Multivitamins) Tab 1 Tab PO DAILY 06/26/17 Reported Provider Instructions Activity Restrictions - No exercising or heavy lifting for 24 hours. - Do not drink alcohol the day of the procedure. - Do not drive a car or operate machinery until the day after the procedure. - Do not make any important decisions or sign important papers in 24 hours after the procedure. Following Day: - Return to full activity which may include returning to work/school. Diet Start your diet with liquids and light foods (jello, soup, juice, toast). Then eat your usual diet if not nauseated. Treatment For Common After Affects For mild abdominal pain, bloating, or excessive gas: - Rest - Eat lightly - Lie on right side Follow-Up Information Follow-up with DR CAMPBELL as scheduled Anesthesia Information What You Should Know You have had a procedure that required some medicine to reduce anxiety and discomfort. This treatment is called moderate sedation. After receiving the treatment, you may be sleepy, but you will be able to breathe on your own. The effects of the treatment may last for several hours. Follow these instructions along with Activity/Diet recommendations noted above: * Do NOT do anything where dizziness or clumsiness would be dangerous. * Rest quietly at home today, then you can be up and about tomorrow. * Have a responsible person stay with you the rest of today. * You may have had an I.V. today. If so, you may take the dressing off later today. Recommendations Call your doctor if: * Trouble breathing * Continuous vomiting for more than 24 hours * Temperature above 101 degrees * Severe abdominal pain or bloating * Pain not relieved by pain medicine ordered * There is increased drainage or redness from any incision * A large amount of rectal bleeding greater than 2-3 tablespoons. (If you had a polyp/s removed or have hemorrhoids, a small amount of blood - from the rectum is to be expected.) * You have any unanswered questions or concerns. IN THE EVENT OF A SERIOUS EMERGENCY, GO TO THE NEAREST EMERGENCY ROOM Your discharge instructions were prepared by provider Nabeel Ceballos. Patient Instructions Signature Page Pratima Prakash Patient (or Guardian) Signature/Date: I have read and understand the instructions given to me by my caregivers. Caregiver/RN/Doctor Signature/Date: The above-named patient and/or guardian has received patient instructions on this date. + Original Patient Signature Page (only) stays with chart. Please make copy for patient.
--- NOTE | 2017-09-21 09:50 | GI REPORT ---
Patient Name: Pratima Prakash Procedure Date: 09/21/2017 9:16 AM Date of : 1945 Admit Type: Outpatient Age: 72 Gender: Female Attending MD: Nabeel Ceballos DO Procedure: Colonoscopy Providers: Nabeel Ceballos DO Referring MD: Yen Cooper Indications: Family history of colon cancer in a distant relative Medicines: Monitored Anesthesia Care Complications: No immediate complications. Estimated Blood Loss: Estimated blood loss: none. Procedure: Pre-Anesthesia Assessment: - Prior to the procedure, a History and Physical was performed, and patient medications and allergies were reviewed. The patient's tolerance of previous anesthesia was also reviewed. The risks and benefits of the procedure and the sedation options and risks were discussed with the patient. All questions were answered, and informed consent was obtained. Prior Anticoagulants: The patient has taken no previous anticoagulant or antiplatelet agents. ASA Grade Assessment: II - A patient with mild systemic disease. After reviewing the risks and benefits, the patient was deemed in satisfactory condition to undergo the procedure. After I obtained informed consent, the scope was passed under direct vision. Throughout the procedure, the patient's blood pressure, pulse, and oxygen saturations were monitored continuously. The Scope was introduced through the anus and advanced to the terminal ileum. The colonoscopy was performed without difficulty. The patient tolerated the procedure well. The quality of the bowel preparation was good. The terminal ileum, ileocecal valve, appendiceal orifice, and rectum were photographed. Findings: The perianal and digital rectal examinations were normal. A 5 mm polyp was found in the descending colon. The polyp was sessile. The polyp was removed with a cold snare. Resection and retrieval were complete. Scattered small-mouthed diverticula were found in the entire colon. Non-bleeding internal hemorrhoids were found during retroflexion. The hemorrhoids were small. Impression: - One 5 mm polyp in the descending colon, removed with a cold snare. Resected and retrieved. - Diverticulosis in the entire examined colon. - Non-bleeding internal hemorrhoids. Recommendation: - Resume previous diet. - Continue present medications. - Repeat colonoscopy for surveillance based on pathology results. - Return to primary care physician as previously scheduled. Nabeel Ceballos DO 09/21/2017 9:50:07 AM This report has been signed electronically. Note Initiated On: 09/21/2017 9:16 AM Number of Addenda: 0 I attest to the content of the Intraoperative Record and orders documented therein, exceptions below {[id number]}
--- NOTE | 2017-09-21 10:11 | Anesthesiology Progress Note ---
Anesthesia Post Op Note Date & Time Sep 21, 2017 at 10:10 Vital Signs Pain Intensity: 0 Vital Signs Past 12 Hours Date Time Temp Pulse Resp B/P (MAP) Pulse Ox O2 Delivery O2 Flow Rate FiO2 09/21/17 10:01 81 18 118/92 (101) 93 Room Air 09/21/17 09:46 36.1 81 16 114/62 (79) 95 Room Air 09/21/17 08:26 36.1 89 20 151/82 (105) 96 Room Air Notes Mental Status: alert / awake / arousable, participated in evaluation Pt Amnestic to Procedure: Yes Nausea / Vomiting: adequately controlled Pain: adequately controlled Airway Patency, RR, SpO2: stable & adequate BP & HR: stable & adequate Hydration State: stable & adequate Anesthetic Complications: no major complications apparent
[2017-09-21 10:14] VITALS: BP 107/65; PULSE 75; O2SAT 97
== END | disposition home or self-care (01) ==
LOC: C.GI 08:05
PROVIDERS: ATTEND Internal Medicine
DX: D12.4 Benign neoplasm of descending colon (principal); Z86.19 Personal history of other infectious and parasitic diseases; K64.8 Other hemorrhoids; K57.30 Diverticulosis of large intestine without perforation or abscess without bleeding; K52.9 Noninfective gastroenteritis and colitis, unspecified; Z80.0 Family history of malignant neoplasm of digestive organs; Z87.891 Personal history of nicotine dependence